=== PATIENT | female | born 2000 | race Caucasian/White ===

== ENCOUNTER 2024-06-09 12:47 | Emergency (ER) | payer OTHER ==
[~2024-06-09] VITALS: Ht 165.1 cm; Wt 82.0 kg
[2024-06-09 12:56] VITALS: O2SAT 97
[2024-06-09 14:18] LABS: CLARITY URINE CLEAR (CLEAR); COLOR URINE YELLOW (YELLOW); GLUCOSE URINE 3+ (NEGATIVE); KETONES URINE TRACE (NEGATIVE); LEUKOCYTE ESTERASE URINE NEGATIVE (NEGATIVE); NITRITE URINE NEGATIVE (NEGATIVE); OCCULT BLOOD URINE NEGATIVE (NEGATIVE); PROTEIN URINE NEGATIVE (NEGATIVE); SPECIFIC GRAVITY URINE 1.047 (1.005-1.030); UROBILINOGEN URINE 0.2 E.U./dL (0.2-1.0)
[2024-06-09 14:45] LABS: BACTERIA URINE 1+; RBC URINE 0-2 /hpf (0-2); SQUAMOUS EPITHELIAL CELL URINE 1+ /lpf (RARE/1+); WBC URINE 0-2 /hpf (0-2); YEAST URINE NONE SEEN
[2024-06-09] MEDS ORDERED: FLUC150T46 MT (16:55)
[2024-06-09] MEDS ORDERED: FLUCONAZOLE 100MG TABLET PO ONE (17:15)
[2024-06-09 17:30] VITALS: BP 130/65; PULSE 100; RESP 16; TEMP 36.8; O2SAT 97
[2024-06-09] MEDS: FLUCONAZOLE 150MG TABLET PO NR (17:30)
== END 2024-06-09 17:33 | disposition home or self-care (01) ==
LOC: ER 12:58
DX: B37.31 Acute candidiasis of vulva and vagina (principal); Z88.0 Allergy status to penicillin
CPT/HCPCS: 87491; 87591; 81003; 81025; 87210; 99284; Z7610; A4606

== ENCOUNTER 2024-06-18 12:21 | Emergency (ER) | payer MEDICAID, OTHER ==
[~2024-06-18] VITALS: Ht 165.1 cm; Wt 91.0 kg
[~2024-06-18 12:21] MED LIST: FLUC150T46 MT
[2024-06-18 12:29] VITALS: BP 115/71; PULSE 88; RESP 18; TEMP 36.9; O2SAT 97
[2024-06-18 14:42] LABS: CLARITY URINE CLEAR (CLEAR); COLOR URINE DARK YELLOW (YELLOW); GLUCOSE URINE NEGATIVE (NEGATIVE); KETONES URINE NEGATIVE (NEGATIVE); LEUKOCYTE ESTERASE URINE TRACE (NEGATIVE); NITRITE URINE NEGATIVE (NEGATIVE); OCCULT BLOOD URINE NEGATIVE (NEGATIVE); PH URINE 5.5 (4.5-8.0); PROTEIN URINE TRACE (NEGATIVE); SPECIFIC GRAVITY URINE 1.026 (1.005-1.030)
[2024-06-18] MEDS ORDERED: FLUC150T46 MT (14:49)
[2024-06-18] MEDS ORDERED: NYST15CR36 TP (14:49)
[2024-06-18 14:57] LABS: BACTERIA URINE FEW; RBC URINE 0-2 /hpf (0-2); SQUAMOUS EPITHELIAL CELL URINE FEW /lpf (RARE/1+); WBC URINE 0-2 /hpf (0-2); YEAST URINE NONE SEEN
== END 2024-06-18 16:06 | disposition home or self-care (01) ==
LOC: ER 12:21
DX: B37.31 Acute candidiasis of vulva and vagina (principal); N89.8 Other specified noninflammatory disorders of vagina; Z79.899 Other long term (current) drug therapy; Z88.0 Allergy status to penicillin
CPT/HCPCS: 81003; 81025; 99283

== ENCOUNTER 2025-02-13 23:11 | Emergency (ER) | payer MEDICAID ==
[~2025-02-13] VITALS: Ht 167.6 cm; Wt 91.0 kg
[~2025-02-13 23:11] MED LIST changes: -FLUC150T46 MT; +INSU100I28 SQ; +LEVO-65 MT; +NYST15CR36 TP
[2025-02-13 23:31] VITALS: O2SAT 99
[2025-02-13 23:35] VITALS: BP 130/75; PULSE 98; RESP 18; TEMP 36.9; O2SAT 99
== END 2025-02-14 03:32 | disposition left against medical advice (07) ==
LOC: ER 23:25
DX: E11.65 Type 2 diabetes mellitus with hyperglycemia (principal); H53.8 Other visual disturbances
CPT/HCPCS: 82962; 99281

== ENCOUNTER 2025-03-02 14:39 | Emergency (ER) | payer MEDICAID ==
[~2025-03-02] VITALS: Ht 165.1 cm; Wt 91.0 kg
[2025-03-02 15:37] VITALS: O2SAT 97
[2025-03-02] MEDS: ACETAMINOPHEN 500MG TABLET PO ONE (17:01)
[2025-03-02] MEDS: IBUPROFEN 400MG TABLET PO ONE (17:01)
[2025-03-02 17:33] LABS: INFLUENZA TYPE A Presumptive Negative (Pres. Neg.)
[2025-03-02 17:34] LABS: INFLUENZA TYPE B Presumptive Negative (Pres. Neg.)
[2025-03-02 17:35] LABS: RESPIRATORY SYNCYTIAL VIRUS Not Detected (Not Detectd)
[2025-03-02] MEDS ORDERED: AZIT250T12 MT (17:49)
[2025-03-02] MEDS ORDERED: BENZ100C86 MT (17:49)
[2025-03-02] MEDS ORDERED: IBUP-2028 MT (17:49)
[2025-03-02] MEDS ORDERED: TOPUD MT (17:49)
[2025-03-02] MEDS: DEXAMETHASONE 4MG TABLET PO ONE (18:21)
[2025-03-02 18:26] VITALS: BP 132/67; PULSE 87; RESP 16; TEMP 36.6; O2SAT 97
== END 2025-03-02 18:27 | disposition home or self-care (01) ==
LOC: ER 14:39
DX: J40 Bronchitis, not specified as acute or chronic (principal); R05.9 Cough, unspecified; R09.81 Nasal congestion; E11.9 Type 2 diabetes mellitus without complications; Z88.0 Allergy status to penicillin; Z79.4 Long term (current) use of insulin; Z20.822 Contact with and (suspected) exposure to COVID-19
CPT/HCPCS: 99284; 71045; 87426; 87420; 87804 ×2; J8540